=== PATIENT | female | born 1965 | race Caucasian/White ===

== ENCOUNTER 2018-10-30 23:00 | Inpatient (IN) | payer OTHER ==
[2018-10-30] MEDS: HYDROmorphONE 0.5 MG/0.5 ML SYG IV (23:43)
[2018-10-31] MEDS: HYDROmorphONE 0.5 MG/0.5 ML SYG IV ×3 (00:12→03:10)
[2018-10-31] MEDS ORDERED: ADENOSINE 2 ML (00:22)
[2018-10-31] MEDS: ADENOSINE 6 MG INJ IV ×2 (00:30→01:27)
[2018-10-31 00:50] LABS: INR 1.56; PROTIME 18.8 Sec (11.9-14.9); PT RATIO 1.5
[2018-10-31 00:51] LABS: PARTIAL THROMBOPLASTIN TIME 45.4 Sec (23.0-35.0)
[2018-10-31 00:52] LABS: ABNORMAL IP MESSAGE 1; HEMATOCRIT 36.7 % (37.0-47.0); HEMOGLOBIN 11.4 g/dl (12.0-16.0); MEAN CORPUSCULAR HEMOGLOBIN 26.8 pg (29.0-33.0); MEAN CORPUSCULAR HGB CONC 31.1 g/dl (32.0-37.0); MEAN CORPUSCULAR VOLUME 86.4 fl (82.0-101.0); PLATELET COUNT 53 10^3/UL (140-415); RED BLOOD COUNT 4.25 10^6/ul (4.20-5.40); RED CELL DISTRIBUTION WIDTH 16.8 % (11.5-14.5)
[2018-10-31 00:52] LABS: WHITE BLOOD COUNT 2.9 10^3/ul (4.8-10.8)
[2018-10-31 00:57] LABS: ANION GAP 10 (5-13); BLOOD UREA NITROGEN 14 mg/dl (7-20); CALCIUM 9.3 mg/dl (8.4-10.2); CARBON DIOXIDE 24 mmol/L (21-31); CHLORIDE 101 mmol/L (97-110); CREATININE 0.64 mg/dl (0.44-1.00); Estimated GFR > 60 mL/min (>60); GLUCOSE 105 mg/dl (70-220); MAGNESIUM 1.4 mg/dl (1.7-2.5); POTASSIUM 3.7 mmol/L (3.5-5.1); SODIUM 135 mmol/L (135-144)
[2018-10-31 01:09] LABS: TROPONIN-I < 0.012 ng/ml (0.000-0.120)
[2018-10-31 01:32] LABS: POSITIVE DIFF @See below
[2018-10-31 01:34] LABS: ADD MAN DIFF? YES
[2018-10-31 03:39] LABS: ANISOCYTOSIS 1+ (0-0); BASOPHILS % (M) 2 % (0-2); EOSINOPHILS % (M) 2 % (0-7); LYMPHOCYTES #M 0.6 10^3/ul (0.8-2.9); LYMPHOCYTES % (M) 23 % (15-51); MONOCYTE #M 0.2 10^3/ul (0.3-0.9); MONOCYTES % (M) 8 % (0-11); OVALOCYTES 2+ (0-0); PLATELET ESTIMATE SIG DECREASED; POIKILOCYTOSIS 3+ (0-0); POLYCHROMASIA 1+ (0-0); SEGMENTED NEUTROPHILS (M) % 65 % (39-77); TEAR DROP CELLS 1+ (0-0)
[2018-10-31] MEDS: morphine 2 MG INJ IV ×6 (06:32→21:05)
[2018-10-31] MEDS: hydrALAzine 20 MG INJ IV (06:32)
[2018-10-31] MEDS: DEXTROSE 5%-0.45% NACL 1,000 ML IV (06:33)
[2018-10-31] MEDS: ATENOLOL 50 MG TAB PO (09:05)
[2018-10-31] MEDS ORDERED: NACL 0.9% 3 ML SYG IV (11:30)
[2018-10-31] MEDS ORDERED: HYDROCODONE/APAP (5/325) TAB PO (11:30)
[2018-10-31] MEDS: SOD CHLORIDE 0.9% 1,000 ML IV ×2 (11:54→20:59)
[2018-10-31] MEDS: MAGNESIUM SULFATE 6 GM in DEXTROSE 5% 150 ML IVPB (11:55)
[2018-10-31 15:03] LABS: ADD MAN DIFF? NO
[2018-10-31 15:07] LABS: ABNORMAL IP MESSAGE 1; BASOPHILS % 0.7 % (0.0-2.0); EOSINOPHILS # 0.1 10^3/ul (0.0-0.5); EOSINOPHILS % 1.7 % (0.0-7.0); HEMATOCRIT 31.7 % (37.0-47.0); HEMOGLOBIN 9.7 g/dl (12.0-16.0); LYMPHOCYTES # 0.6 10^3/ul (0.8-2.9); LYMPHOCYTES % 18.8 % (15.0-51.0); MEAN CORPUSCULAR HEMOGLOBIN 26.1 pg (29.0-33.0); MEAN CORPUSCULAR HGB CONC 30.6 g/dl (32.0-37.0); MEAN CORPUSCULAR VOLUME 85.4 fl (82.0-101.0); MONOCYTE # 0.4 10^3/ul (0.3-0.9); MONOCYTES % 13.4 % (0.0-11.0); NEUTROPHIL # 1.9 10^3/ul (1.6-7.5); NEUTROPHILS % 65.1 % (39.0-77.0); PLATELET COUNT 44 10^3/UL (140-415); RED BLOOD COUNT 3.71 10^6/ul (4.20-5.40); RED CELL DISTRIBUTION WIDTH 16.9 % (11.5-14.5)
[2018-10-31 15:21] LABS: POSITIVE DIFF @See below
[2018-10-31 15:27] LABS: ANION GAP 5 (5-13); BLOOD UREA NITROGEN 12 mg/dl (7-20); CALCIUM 8.4 mg/dl (8.4-10.2); CARBON DIOXIDE 26 mmol/L (21-31); CHLORIDE 105 mmol/L (97-110); CREATININE 0.64 mg/dl (0.44-1.00); Estimated GFR > 60 mL/min (>60); GLUCOSE 92 mg/dl (70-220); SODIUM 136 mmol/L (135-144)
[2018-10-31] MEDS: FILGRASTIM 480 MCG INJ SC (17:00)
[2018-10-31] MEDS: PROCRIT SC (18:35)
[2018-10-31] MEDS: ONDANSETRON 4 MG INJ IV (20:19)
[2018-11-01] MEDS: morphine 2 MG INJ IV ×4 (00:35→21:57)
[2018-11-01] MEDS: SOD CHLORIDE 0.9% 1,000 ML IV ×4 (03:52→22:02)
[2018-11-01] MEDS: morphine 4 MG/ML VIAL IV (05:55)
[2018-11-01 06:20] LABS: ADD MAN DIFF? NO
[2018-11-01 06:27] LABS: WHITE BLOOD COUNT 2.2 10^3/ul (4.8-10.8)
[2018-11-01 06:27] LABS: ABNORMAL IP MESSAGE 1; BASOPHILS % 0.9 % (0.0-2.0); EOSINOPHILS # 0.1 10^3/ul (0.0-0.5); EOSINOPHILS % 2.8 % (0.0-7.0); HEMATOCRIT 31.8 % (37.0-47.0); HEMOGLOBIN 9.8 g/dl (12.0-16.0); LYMPHOCYTES # 0.6 10^3/ul (0.8-2.9); LYMPHOCYTES % 25.6 % (15.0-51.0); MEAN CORPUSCULAR HEMOGLOBIN 27.1 pg (29.0-33.0); MEAN CORPUSCULAR HGB CONC 30.8 g/dl (32.0-37.0); MEAN CORPUSCULAR VOLUME 87.8 fl (82.0-101.0); MONOCYTE # 0.2 10^3/ul (0.3-0.9); MONOCYTES % 11.2 % (0.0-11.0); NEUTROPHIL # 1.3 10^3/ul (1.6-7.5); RED BLOOD COUNT 3.62 10^6/ul (4.20-5.40); RED CELL DISTRIBUTION WIDTH 16.8 % (11.5-14.5)
[2018-11-01 06:49] LABS: POSITIVE DIFF @See below
[2018-11-01 06:50] LABS: PLATELET COUNT 51 10^3/UL (140-415)
[2018-11-01] MEDS ORDERED: LIDOCAINE 2% (SDV) 5 ML INJ (07:00)
[2018-11-01] MEDS ORDERED: PROPOFOL 20 ML (07:52)
[2018-11-01] MEDS: VANCOMYCIN 1 GM (PMX) 250 ML (08:20)
[2018-11-01] MEDS ORDERED: morphine 10 MG INJ (08:25)
[2018-11-01 08:33] LABS: AHG CROSSMATCH 1 2
[2018-11-01] MEDS: ENOXAPARIN 40 MG/0.4 ML SYG SC (08:49)
[2018-11-01] MEDS: ATENOLOL 50 MG TAB PO (08:49)
[2018-11-01] MEDS: POLYMYXIN/BACITRACIN 1L IRRIG (09:01)
[2018-11-01] MEDS ORDERED: DEXAMETHASONE 4 MG/ML 5 ML INJ (09:41)
[2018-11-01] MEDS ORDERED: ROCURONIUM 50 MG INJ (09:41)
[2018-11-01] MEDS ORDERED: ONDANSETRON 4 MG INJ (09:41)
[2018-11-01] MEDS ORDERED: NEOSTIGMINE 10 MG INJ (09:42)
[2018-11-01] MEDS ORDERED: GLYCOPYRROLATE 0.4 MG INJ (09:42)
[2018-11-01] MEDS ORDERED: oxyCODONE 5 MG TAB PO (10:00)
[2018-11-01] MEDS ORDERED: NACL 0.9% 3 ML SYG IV (10:00)
[2018-11-01] MEDS ORDERED: NALOXONE (0.4 MG/ML) INJ IV (10:00)
[2018-11-01] MEDS ORDERED: morphine 4 MG/ML VIAL IV (10:00)
[2018-11-01] MEDS: DIPHENHYDRAMINE 50 MG INJ IV (10:16)
[2018-11-01] MEDS: ONDANSETRON 4 MG INJ IV (10:17)
[2018-11-01] MEDS: LABETALOL HCL 20MG INJ IV (10:17)
[2018-11-01] MEDS: HYDROmorphONE 1 MG/5 ML IV SYRINGE IV ×2 (10:21→10:56)
[2018-11-01] MEDS ORDERED: hydrALAzine 20 MG INJ IV (10:30)
[2018-11-01] MEDS ORDERED: METOCLOPRAMIDE 10 MG INJ IV (10:30)
[2018-11-01] MEDS ORDERED: EPHEDrine SULFATE 50 MG/5 ML SYG IV (10:30)
[2018-11-01] MEDS ORDERED: MIDAZOLAM 1 MG/ML 2 ML INJ IV (10:30)
[2018-11-01] MEDS ORDERED: HYDROmorphONE 1 MG/5 ML IV SYRINGE IV (10:30)
[2018-11-01] MEDS ORDERED: MEPERIDINE 25 MG INJ IV (10:30)
[2018-11-01] MEDS ORDERED: ALBUTEROL 0.083% (NEB) 2.5 MG/3 ML AMP HHN (10:30)
[2018-11-01] MEDS ORDERED: FENTAnyl 50 MCG/ML VIAL IV ×3 (10:30)
[2018-11-01 10:41] LABS: ADD MAN DIFF? NO
[2018-11-01 10:42] LABS: WHITE BLOOD COUNT 2.4 10^3/ul (4.8-10.8)
[2018-11-01 10:42] LABS: ABNORMAL IP MESSAGE 1; BASOPHILS % 0.4 % (0.0-2.0); EOSINOPHILS % 1.3 % (0.0-7.0); HEMATOCRIT 30.2 % (37.0-47.0); HEMOGLOBIN 9.1 g/dl (12.0-16.0); LYMPHOCYTES # 0.5 10^3/ul (0.8-2.9); LYMPHOCYTES % 19.5 % (15.0-51.0); MEAN CORPUSCULAR HGB CONC 30.1 g/dl (32.0-37.0); MEAN CORPUSCULAR VOLUME 89.6 fl (82.0-101.0); MONOCYTE # 0.2 10^3/ul (0.3-0.9); MONOCYTES % 7.2 % (0.0-11.0); NEUTROPHIL # 1.7 10^3/ul (1.6-7.5); NEUTROPHILS % 69.9 % (39.0-77.0); RED BLOOD COUNT 3.37 10^6/ul (4.20-5.40); RED CELL DISTRIBUTION WIDTH 16.7 % (11.5-14.5)
[2018-11-01 10:44] LABS: PLATELET COUNT 39 10^3/UL (140-415); POSITIVE DIFF @See below
[2018-11-01 11:05] LABS: ANION GAP 8 (5-13); BLOOD UREA NITROGEN 13 mg/dl (7-20); CALCIUM 8.2 mg/dl (8.4-10.2); CARBON DIOXIDE 25 mmol/L (21-31); CHLORIDE 107 mmol/L (97-110); CREATININE 0.65 mg/dl (0.44-1.00); Estimated GFR > 60 mL/min (>60); GLUCOSE 98 mg/dl (70-220); POTASSIUM 4.1 mmol/L (3.5-5.1); SODIUM 140 mmol/L (135-144)
[2018-11-01 14:40] LABS: IMMEDIATE SPIN CROSSMATCH 1
[2018-11-01] MEDS: VANCOMYCIN 1 GM (PMX) 250 ML IVPB (21:57)
[2018-11-02] MEDS: morphine 4 MG/ML VIAL IV (00:28)
[2018-11-02] MEDS: morphine 2 MG INJ IV ×3 (06:02→15:29)
[2018-11-02] MEDS: VANCOMYCIN 1 GM (PMX) 250 ML IVPB (06:02)
[2018-11-02 06:21] LABS: ADD MAN DIFF? NO
[2018-11-02 06:41] LABS: ABNORMAL IP MESSAGE 1; HEMATOCRIT 29.3 % (37.0-47.0); HEMOGLOBIN 9.2 g/dl (12.0-16.0); LYMPHOCYTES # 0.3 10^3/ul (0.8-2.9); LYMPHOCYTES % 9.6 % (15.0-51.0); MEAN CORPUSCULAR HEMOGLOBIN 27.5 pg (29.0-33.0); MEAN CORPUSCULAR HGB CONC 31.4 g/dl (32.0-37.0); MEAN CORPUSCULAR VOLUME 87.7 fl (82.0-101.0); MONOCYTE # 0.2 10^3/ul (0.3-0.9); MONOCYTES % 7.7 % (0.0-11.0); NEUTROPHIL # 2.2 10^3/ul (1.6-7.5); NEUTROPHILS % 82.3 % (39.0-77.0); PLATELET COUNT 35 10^3/UL (140-415); RED BLOOD COUNT 3.34 10^6/ul (4.20-5.40); RED CELL DISTRIBUTION WIDTH 16.5 % (11.5-14.5)
[2018-11-02 06:41] LABS: WHITE BLOOD COUNT 2.6 10^3/ul (4.8-10.8)
[2018-11-02 06:57] LABS: POSITIVE DIFF @See below
[2018-11-02] MEDS: ATENOLOL 50 MG TAB PO (08:12)
[2018-11-02] MEDS: ENOXAPARIN 40 MG/0.4 ML SYG SC ×3 (08:22→09:00)
[2018-11-02] MEDS: SOD CHLORIDE 0.9% 1,000 ML IV (10:28)
[2018-11-02] MEDS ORDERED: ACETAMINOPHEN 325 MG TAB PO (16:00)
[2018-11-02] MEDS: FILGRASTIM 480 MCG INJ SC (17:00)
[2018-11-02] MEDS: PROCRIT SC (17:00)
== END 2018-11-02 18:20 | DRG 481 ==
LOC: E/R 23:00 → 6WM 10-31 01:55
PROVIDERS: Pediatrics Neonatal-Perinatal Medicine
PROC: 0QS604Z Reposition Right Upper Femur with Internal Fixation Device, Open Approach (ICD-10-PCS; principal; 2018-11-01 07:30)
PROC: 30233N1 Transfusion of Nonautologous Red Blood Cells into Peripheral Vein, Percutaneous Approach (ICD-10-PCS; 2018-11-01 07:30)
PROC: 30233K1 Transfusion of Nonautologous Frozen Plasma into Peripheral Vein, Percutaneous Approach (ICD-10-PCS; 2018-11-01 08:12)
DX: S72.141A Displaced intertrochanteric fracture of right femur, initial encounter for closed fracture (principal); D61.818 Other pancytopenia; I47.1 Supraventricular tachycardia; D62 Acute posthemorrhagic anemia; Z68.35 Body mass index [BMI] 35.0-35.9, adult; K74.60 Unspecified cirrhosis of liver; E66.9 Obesity, unspecified; B18.2 Chronic viral hepatitis C; I10 Essential (primary) hypertension; M54.5 Low back pain; W17.82XA Fall from (out of) grocery cart, initial encounter; Y93.89 Activity, other specified; Y92.512 Supermarket, store or market as the place of occurrence of the external cause; Y99.8 Other external cause status; Z96.651 Presence of right artificial knee joint
CPT/HCPCS: 36415; 36430; 71045; 72192; 73500; 73510; 80048; 83735; 84484; 85025; 85610; 85730; 86850; 86900; 86901; 86920; 93005; 96374; 96376; 97110; 97116; 97161; 99291-25

== ENCOUNTER 2019-03-14 05:20 | Observation (INO) | payer OTHER ==
[2019-03-14] MEDS ORDERED: DILTIAZEM 25 MG INJ (05:34)
[2019-03-14] MEDS: DILTIAZEM 25 MG INJ IV ×2 (05:46→06:04)
[2019-03-14 05:58] LABS: ADD MAN DIFF? NO
[2019-03-14] MEDS: ASPIRIN 325 MG TAB PO (05:59)
[2019-03-14 06:02] LABS: ABNORMAL IP MESSAGE 1; BASOPHILS % 0.5 % (0.0-2.0); EOSINOPHILS # 0.1 10^3/ul (0.0-0.5); EOSINOPHILS % 4.3 % (0.0-7.0); HEMATOCRIT 29.9 % (37.0-47.0); HEMOGLOBIN 9.8 g/dl (12.0-16.0); LYMPHOCYTES # 0.6 10^3/ul (0.8-2.9); LYMPHOCYTES % 30.5 % (15.0-51.0); MEAN CORPUSCULAR HGB CONC 32.8 g/dl (32.0-37.0); MEAN CORPUSCULAR VOLUME 91.4 fl (82.0-101.0); MONOCYTE # 0.2 10^3/ul (0.3-0.9); MONOCYTES % 10.2 % (0.0-11.0); PLATELET COUNT 62 10^3/UL (140-415); RED BLOOD COUNT 3.27 10^6/ul (4.20-5.40); RED CELL DISTRIBUTION WIDTH 14.1 % (11.5-14.5)
[2019-03-14 06:02] LABS: WHITE BLOOD COUNT 1.9 10^3/ul (4.8-10.8)
[2019-03-14 06:03] LABS: POSITIVE DIFF @See below
[2019-03-14 06:23] LABS: ALANINE AMINOTRANSFERASE 29 IU/L (13-69); ALKALINE PHOSPHATASE 71 IU/L (42-121); ANION GAP 5 (5-13); ASPARTATE AMINO TRANSFERASE 31 IU/L (15-46); BLOOD UREA NITROGEN 16 mg/dl (7-20); CALCIUM 8.9 mg/dl (8.4-10.2); CARBON DIOXIDE 24 mmol/L (21-31); CHLORIDE 114 mmol/L (97-110); CREATININE 0.54 mg/dl (0.44-1.00); Estimated GFR > 60 mL/min (>60); GLUCOSE 105 mg/dl (70-220); SODIUM 143 mmol/L (135-144); TOTAL PROTEIN 6.3 g/dl (6.1-8.1)
[2019-03-14 06:35] LABS: TROPONIN-I < 0.012 ng/ml (0.000-0.120)
[2019-03-14 07:34] LABS: BAND NEUTROPHILS % (M) 3 % (0-4); BASOPHILS % (M) 1 % (0-2); EOSINOPHILS % (M) 1 % (0-7); LYMPHOCYTES #M 0.8 10^3/ul (0.8-2.9); LYMPHOCYTES % (M) 43 % (15-51); MONOCYTE #M 0.1 10^3/ul (0.3-0.9); MONOCYTES % (M) 10 % (0-11); OVALOCYTES 1+ (0-0); PLATELET ESTIMATE DECREASED; POIKILOCYTOSIS 1+ (0-0); POLYCHROMASIA 1+ (0-0); REACTIVE LYMPHOCYTES% (M) 1 % (0-0); SCHISTOCYTES 1+ (0-0); SEG NEUT #M 0.8 10^3/ul (1.6-7.5); SEGMENTED NEUTROPHILS (M) % 41 % (39-77); SMUDGE%M 4 % (0-0)
[2019-03-14 08:51] LABS: TROPONIN-I 0.025 ng/ml (0.000-0.120)
[2019-03-14] MEDS ORDERED: ONDANSETRON 4 MG INJ IV ×2 (09:00→11:00)
[2019-03-14] MEDS ORDERED: ACETAMINOPHEN 325 MG TAB PO ×2 (09:00→11:00)
[2019-03-14] MEDS ORDERED: HYDROmorphONE 2 MG/ML SYG IV (11:00)
[2019-03-14] MEDS: [UNRECOGNIZED DRUG - OTHER] XX ×2 (11:33→19:30)
[2019-03-14] MEDS: ATORVASTATIN 20 MG TAB PO (12:27)
[2019-03-14] MEDS: FUROSEMIDE 20 MG TAB PO (12:28)
[2019-03-14] MEDS: FERROUS SULFATE (EC) 325 MG TAB PO ×2 (12:28→22:04)
[2019-03-14] MEDS: MAGNESIUM SULFATE 2 GM/50 ML 50 ML IVPB (14:30)
[2019-03-14 16:43] LABS: TROPONIN-I 0.014 ng/ml (0.000-0.120)
[2019-03-14] MEDS ORDERED: OXYCODONE/ACETAMINOPHEN (5/325) TAB PO (18:30)
[2019-03-14] MEDS: OXYCODONE/ACETAMINOPHEN (5/325) TAB PO (18:44)
[2019-03-14] MEDS: ZOLPIDEM 5 MG TAB PO (22:04)
[2019-03-15] MEDS: [UNRECOGNIZED DRUG - OTHER] XX ×2 (03:30→11:30)
[2019-03-15] MEDS: PANTOPRAZOLE (EC) 40 MG TAB PO (05:35)
[2019-03-15 06:44] LABS: ABNORMAL IP MESSAGE 1; HEMATOCRIT 28.5 % (37.0-47.0); HEMOGLOBIN 9.2 g/dl (12.0-16.0); MEAN CORPUSCULAR HEMOGLOBIN 29.4 pg (29.0-33.0); MEAN CORPUSCULAR HGB CONC 32.3 g/dl (32.0-37.0); MEAN CORPUSCULAR VOLUME 91.1 fl (82.0-101.0); MEAN PLATELET VOLUME 12.4 fl (7.4-10.4); PLATELET COUNT 58 10^3/UL (140-415); RED BLOOD COUNT 3.13 10^6/ul (4.20-5.40); RED CELL DISTRIBUTION WIDTH 13.9 % (11.5-14.5)
[2019-03-15 06:44] LABS: WHITE BLOOD COUNT 1.5 10^3/ul (4.8-10.8)
[2019-03-15 06:50] LABS: ADD MAN DIFF? YES; POSITIVE DIFF @See below
[2019-03-15 07:17] LABS: ANION GAP 4 (5-13); BLOOD UREA NITROGEN 17 mg/dl (7-20); CALCIUM 8.4 mg/dl (8.4-10.2); CARBON DIOXIDE 25 mmol/L (21-31); CHLORIDE 113 mmol/L (97-110); CREATININE 0.53 mg/dl (0.44-1.00); Estimated GFR > 60 mL/min (>60); GLUCOSE 84 mg/dl (70-220); SODIUM 142 mmol/L (135-144)
[2019-03-15 07:19] LABS: MAGNESIUM 1.7 mg/dl (1.7-2.5)
[2019-03-15] MEDS: FERROUS SULFATE (EC) 325 MG TAB PO ×2 (08:20→12:37)
[2019-03-15] MEDS: FLUOXETINE 20 MG CAP PO (08:20)
[2019-03-15] MEDS: ATORVASTATIN 20 MG TAB PO (08:21)
[2019-03-15] MEDS: FUROSEMIDE 20 MG TAB PO (08:21)
[2019-03-15] MEDS: SPIRONOLACTONE 50 MG TAB PO (08:21)
[2019-03-15] MEDS: LISINOPRIL 10 MG TAB PO (08:21)
[2019-03-15] MEDS: OXYCODONE/ACETAMINOPHEN (5/325) TAB PO (08:33)
[2019-03-15 08:36] LABS: ANISOCYTOSIS 1+ (0-0); BASOPHILS % (M) 2 % (0-2); GIANT THROMBO% (M) 1 % (0-0); LYMPHOCYTES #M 0.5 10^3/ul (0.8-2.9); LYMPHOCYTES % (M) 37 % (15-51); MICROCYTOSIS 1+ (0-0); MONOCYTES % (M) 3 % (0-11); OVALOCYTES 1+ (0-0); PLATELET ESTIMATE DECREASED; POIKILOCYTOSIS 1+ (0-0); POLYCHROMASIA 1+ (0-0); SEGMENTED NEUTROPHILS (M) % 58 % (39-77); SMUDGE%M 13 % (0-0)
[2019-03-15] MEDS: MAGNESIUM SULFATE 4 GM/100 ML 100 ML IVPB (11:28)
[2019-03-15] MEDS: FUROSEMIDE 20 MG INJ IV (12:40)
== END 2019-03-15 17:45 | disposition home or self-care (01) ==
LOC: E/R 05:20 → TEL 09:01
DX: I11.0 Hypertensive heart disease with heart failure (principal); I50.9 Heart failure, unspecified; I47.1 Supraventricular tachycardia; D61.818 Other pancytopenia; I34.0 Nonrheumatic mitral (valve) insufficiency; K74.69 Other cirrhosis of liver; B19.20 Unspecified viral hepatitis C without hepatic coma; Z88.0 Allergy status to penicillin
CPT/HCPCS: 36415; 71045; 80048; 80053; 83735; 84484; 85025; 93005; 93306; 96374; 99217; 99285-25; G0378